=== PATIENT | male | born 1945 | race Caucasian/White ===

== ENCOUNTER → 2017-05-12 | Outpatient (CLI) | payer BC ==
--- NOTE | ~2017-05-12 | CT57 ---
[facility] A Service of [facility] RADIOLOGY TEXT RESULTS PATIENT: RAMBO BOUDREAUX SR LOCATION: [facility] : 47 UNIT #: [id number] AGE: [address]: Satya Del Rio MD SEX: M ORDER DR: [id number] [facility] [address] [place], [place] [address] [id number] MR#: [id number] Acc #: [id number] NAME: RAMBO BOUDREAUX : 1945 SEX: M STUDY DATE/TIME: 05/12/2017 8:15 UNIT: [facility] ROOM: STUDY DESCRIPTION: CT Chest Wo Cont Attending Physician: Satya Del Rio Referring Physician: Satya Del Rio Ordering Physician: Satya Del Rio Primary Care Physician: Corina Mckeon M.D. MEDICAL IMAGING REPORT This report is preliminary unless electronic signature is present EXAM CT chest without contrast INDICATION COPD. Pulmonary nodule followup. PROCEDURE Unenhanced CT of the chest. This CT examination was performed with one or more of the following radiation dose reduction techniques: automatic exposure control, adjustment of mA and/or kV according to patient size, and iterative reconstruction. COMPARISON 05/13/2016. FINDINGS Significant emphysema. 6-7 mm nodule in the left lower lobe. This is unchanged dating back to 05/06/2015. No new nodules. No adenopathy. Coronary artery calcification. No acute findings in the included upper abdomen. Hepatic steatosis. No aggressive appearing bone lesion. IMPRESSION 1. Stable 7 mm nodule in the left lower lobe dating back to 05/06/2015. Two years of stability favors a benign process. No additional followup is required. 2. Significant emphysema. Correlate with the patient's risk factors. Patient may be a candidate for yearly low-dose lung cancer screening. 3. Hepatic steatosis. Dictated by... Charlie Meraz M.D. [facility] A Service of [facility] RADIOLOGY TEXT RESULTS PATIENT: RAMBO BOUDREAUX SR LOCATION: [facility] : 47 UNIT #: [id number] AGE: [address]: Satya Del Rio MD SEX: M ORDER DR: THIS IS AN ELECTRONICALLY VERIFIED REPORT Charlie Meraz M.D. at 05/15/2017 9:56 PM NICK/prem TD: 05/12/2017 10:30 JOB #: [id number] MEDICAL IMAGING REPORT Page 1 of 1 COPY
== END | disposition home or self-care (01) ==
LOC: CRC 07:25
DX: J44.9 Chronic obstructive pulmonary disease, unspecified (principal); R91.1 Solitary pulmonary nodule; K76.0 Fatty (change of) liver, not elsewhere classified
CPT/HCPCS: 71250; 94060; 94726; 94729